=== PATIENT | male | born 1995 | race Caucasian/White ===

== ENCOUNTER → 2019-04-20 | Outpatient (CLI) | payer OTHER ==
--- NOTE | 2019-04-28 14:41 | PFTRPT ---
Site: [facility], [address] [place], [address] ID: [id number] Name: TIANA LYLE Visit Date: 04/20/2019 Second ID: [id number] Referring Doctor: LEWIS CASTRO Reviewing Doctor: Hi Ruiz MD Office System Analyst: Pily Del Cid Age: 23 : 1995 Sex: Male Race: Height: 74.00 Inches Weight: 200.00 Lbs BSA: 2.17 Order IDs: [id number] Requested Test(s): <RESP-PFT.DLCO> Diagnosis: DYSPNEA, UNSPECIFIED test meet the ATS standards for acceptability and repeatability. Pt was given four puffs of albuterol for postbronchodilator. Review Status: Not Reviewed Pre-Bronch Post-Bronch Pred Actual %Pred Actual %Chng SPIROMETRY FVC (L) 6.27 5.36 85 5.64 5 FEV1 (L) 5.15 3.98 77 4.65 16 FEV1/FVC (%) 83 74 89 83 11 FEF 25% (L/sec) 8.93 5.47 61 10.06 83 FEF 50% (L/sec) 5.77 3.66 63 5.82 59 FEF 75% (L/sec) 2.40 1.85 77 2.40 29 FEF 25-75% (L/sec) 5.22 3.39 64 4.89 44 FEF Max (L/sec) 11.08 7.01 63 10.63 51 FIVC (L) 4.58 5.30 15 FIF 50% (L/sec) 5.69 5.64 99 4.59 -18 FIF Max (L/sec) 5.66 5.06 -10 MVV (L/min) 201 101 50 Expiratory Time (sec) 7.10 6.33 -10 Back Extrap Vol (L) 0.12 0.21 77 Time To FEFmax (sec) 0.107 0.104 -2 LUNG VOLUMES SVC (L) 5.99 5.66 94 IC (L) 3.89 4.30 110 ERV (L) 2.10 1.36 64 TGV (L) 3.79 3.58 94 RV (Pleth) (L) 1.69 2.21 131 TLC (Pleth) (L) 7.68 7.88 102 RV/TLC (Pleth) (%) 21 28 133 DIFFUSION DLCOunc (ml/min/mmHg) 38.65 39.67 102 DLCOcor (ml/min/mmHg) 38.65 39.89 103 DL/VA (ml/min/mmHg/L) 5.03 4.82 95 VA (L) 7.68 8.28 107 BHT (sec) 9.82 IVC (L) 5.44 TLC (SB) (L) 8.43 AIRWAYS RESISTANCE Raw (cmH2O/L/s) 1.45 1.65 113 Gaw (L/s/cmH2O) 1.03 0.61 59 sRaw (cmH2O*s) 4.76 5.88 123 sGaw (1/cmH2O*s) 0.20 0.17 86 BLOOD GASES Hgb (gm/dL) 14.4
== END ==
LOC: M CARPUL 09:53
DX: R06.00 Dyspnea, unspecified (principal)